=== PATIENT | male | born 1995 | race Caucasian/White ===

== ENCOUNTER → 2017-02-25 | Outpatient (CLI) | payer OTHER ==
--- NOTE | 2017-02-26 12:43 | MR ---
EXAMINATION TYPE: MR tib fib LT wo con DATE OF EXAM: 02/25/2017 1:33 PM COMPARISON: NONE HISTORY: 21-year-old male Left leg pain TECHNIQUE: Multiplanar, multisequence images of the left leg from above the knee to the distal third tibia/fibula were obtained without IV contrast. FINDINGS: No osseous edema or bone marrow replacement is identified. The knee articulation is grossly intact. There is mild joint effusion. There is mild vague edema asymmetric from the other side spanning approximately 7 cm craniocaudal and 3 cm wide along the mid calf centered within the lateral aspect of the medial head gastrocnemius. No abnormal fluid collection. Or discrete tear is seen. There is normal muscle bulk. No other soft ti ssue of the malleus seen. IMPRESSION: 1. Focal mild edema along the lateral aspect of the medial gastrocnemius located at the mid calf leve l. Correlate for a muscle strain or low-grade tennis leg injury without tear. 2. Otherwise, no specific abnormality seen. Imaging performed from above the knee to the distal third calf.
--- NOTE | 2017-02-27 22:04 | MR ---
EXAMINATION TYPE: MR ankle LT wo con DATE OF EXAM: 02/25/2017 1:33 PM COMPARISON: NONE HISTORY: 21-year-old male with left leg pain TECHNIQUE: Multiplanar, multisequence images of the left ankle were obtained without IV contrast. FINDINGS: There is a small tibiotalar joint effusion. A bilocular 1.2 x 0.8 cm ganglion cyst is noted posterior ly overlying the PTFL. Evaluation of the osseous structures shows no suspicious bone marrow replacement or focal bone marrow edema. Preserved fatty signal within the sinus tarsi. The tarsal tunnel is clear. The Achilles tendon and the origin of the plantar fascia are intact. The syndesmosis is intact. The anterior extensor tendons are satisfactory. Mild tenosynovial fluid seen along the posterior tibial tendon. Medial flexor tendons are otherwise s atisfactory. The deltoid and spring ligament complex are intact. The peroneal tendons and lateral ligamentous complex appear intact No significant soft tissue abnormality is seen. IMPRESSION: 1. Mild fluid seen along the posterior tibial tendon sheath probably physiologic. Correlate to exclud e mild tenosynovitis. 2. Bilocular 1.2 cm ganglion cyst posteriorly overlying the PTFL. 3. Otherwise, no specific abnormality seen.
== END | disposition home or self-care (01) ==
LOC: RADMRIMAIN 11:17
PROVIDERS: ATTEND Nurse Practitioner Family
DX: M67.472 Ganglion, left ankle and foot (principal); R60.0 Localized edema; M79.605 Pain in left leg

== ENCOUNTER 2017-05-18 15:19 | Emergency (ER) | payer OTHER ==
[2017-05-18] MEDS ORDERED: DIPH,PERTUS(ACELL)TETVAC-LF 0.5 ML VIAL IM ONE (15:23)
[2017-05-18] MEDS ORDERED: SODIUM CHLORIDE 0.9% 500 ML IV STA (15:23)
--- NOTE | 2017-05-18 15:42 | XR ---
EXAMINATION TYPE: XR chest 1V portable DATE OF EXAM: 05/18/2017 COMPARISON: NONE HISTORY: Pain TECHNIQUE: Single frontal view of the chest is obtained. FINDINGS: There is no focal air space opacity, pleural effusion, or pneumothorax seen. The cardiac silhouette size is within normal limits. The osseous structures are intact. IMPRESSION: No acute process.
[2017-05-18 15:47] LABS: Glucose,Whole Blood 116 mg/dL (75-99)
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
[2017-05-18 15:48] LABS: Basophils % (A) 0 %; CH 32.4; CHCM 36.3; Eosinophils # (A) 0.1 k/uL (0-0.7); Eosinophils % (A) 1 %; HCT 49.1 % (39.0-53.0); HDW 2.68; Luc # (Auto) 0.09; Luc % (Auto) 1; Lymphocytes # (A) 1.6 k/uL (1.0-4.8); Lymphocytes % (A) 21 %; MCH 31.1 pg (25.0-35.0); MCHC 34.6 g/dL (31.0-37.0); MCV 89.8 fL (80.0-100.0); Mean Platelet Volume 7.8; Monocytes # (A) 0.4 k/uL (0-1.0); Monocytes % (A) 5 %; Neutrophils # (A) 5.6 k/uL (1.3-7.7); Neutrophils % (A) 72 %; RBC 5.47 m/uL (4.30-5.90); RDW 13.8 % (11.5-15.5); WBC 7.8 k/uL (3.8-10.6); WBC (Perox) 7.75
[2017-05-18 15:57] VITALS: RESP 18
[2017-05-18 16:00] LABS: ALT 75 U/L (21-72); AST 42 U/L (17-59); Alcohol <10 mg/dL; Alkaline Phosphatase 75 U/L (38-126); Anion Gap 15 mmol/L; Blood Urea Nitrogen 12 mg/dL (9-20); Calcium 10.5 mg/dL (8.4-10.2); Carbon Dioxide 22 mmol/L (22-30); Chloride 106 mmol/L (98-107); Glucose 116 mg/dL (74-99); INR 1.1 (<1.2); Non-African American GFR(MDRD) >60 (>60 ml/min/1.73 sqM); Partial Thromboplastin Time 23.9 sec (22.0-30.0); Potassium 4.4 mmol/L (3.5-5.1); Prothrombin Time 11.2 sec (9.0-12.0); Sodium 143 mmol/L (137-145); Total Bilirubin 0.6 mg/dL (0.2-1.3); Total Protein 8.2 g/dL (6.3-8.2)
[2017-05-18 16:10] LABS: Creatine Kinase 171 U/L (55-170)
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
[2017-05-18 16:23] LABS: Creatine Kinase MB 1.5 ng/mL (0.0-2.4); Troponin I <0.012 ng/mL (0.000-0.034)
[2017-05-18 16:36] LABS: Appearance,Urine Clear (Clear); Bacteria,Urine Rare /hpf; Bilirubin,Urine Negative (Negative); Glucose,Urine (UA) Negative (Negative); Ketones,Urine Negative (Negative); Leukocyte Esterase,Urine Negative (Negative); Mucus,Urine Occasional /hpf; Nitrite,Urine Negative (Negative); PH, Urine 5.5 (5.0-8.0); Particle Count 5914; Protein,Urine 1+ (Negative); RBC,Urine 1 /hpf (0-5); Specific Gravity,Urine 1.017 (1.001-1.035); UA Billing (MACRO vs. MICRO) MICRO; Urobilinogen,Urine <2.0 mg/dL (<2.0); WBC,Urine 2 /hpf (0-5)
[2017-05-18 16:40] LABS: Amylase <30 U/L (30-110)
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
[2017-05-18 18:00] VITALS: BP 142/64; PULSE 76; TEMP 97.5
== END 2017-05-18 17:42 | disposition home or self-care (01) ==
LOC: EC 15:19
DX: S40.011A Contusion of right shoulder, initial encounter (principal); R51 Headache; M54.6 Pain in thoracic spine; F17.200 Nicotine dependence, unspecified, uncomplicated; V89.2XXA Person injured in unspecified motor-vehicle accident, traffic, initial encounter; Y92.89 Other specified places as the place of occurrence of the external cause
CPT/HCPCS: 36415; 70450; 71010; 72125; 72170; 80053; 80306; 80320; 81001; 82150; 82550; 82553; 83605; 83690; 84484; 85025; 85610; 85730; 86850; 86900; 86901; 93005; 96360; 96361; 99284

== ENCOUNTER 2019-11-07 09:23 | Emergency (ER) | payer OTHER ==
[2019-11-07 10:08] VITALS: BP 132/89; RESP 16; TEMP 98.2
[2019-11-07] MEDS ORDERED: KETOROLAC 60 MG/2 ML VIAL IM STA (10:45)
[2019-11-07] MEDS ORDERED: ORPHENADRINE 30 MG/ML 2 ML VIAL IM STA (10:45)
[2019-11-07] MEDS ORDERED: HYDROcodone/APAP 5-325MG 1 EACH TAB PO STA (10:45)
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
[2019-11-07 12:07] VITALS: PULSE 88
== END 2019-11-07 12:06 | disposition home or self-care (01) ==
LOC: EC 09:23
DX: S39.012A Strain of muscle, fascia and tendon of lower back, initial encounter (principal); G89.29 Other chronic pain; F17.200 Nicotine dependence, unspecified, uncomplicated; X50.9XXA Other and unspecified overexertion or strenuous movements or postures, initial encounter
CPT/HCPCS: 72110; 99283; 96372 ×2; J2360; J1885

== ENCOUNTER 2022-09-07 14:15 | Emergency (ER) | payer OTHER ==
[2022-09-07 14:35] VITALS: TEMP 97.8
[2022-09-07] MEDS ORDERED: ORPHENADRINE 30 MG/ML 2 ML VIAL IM STA (16:11)
[2022-09-07] MEDS ORDERED: KETOROLAC 15 MG/ML 1 ML VIAL IM STA (16:11)
[2022-09-07] MEDS ORDERED: DEXAMETHASONE SOD PHOSPHATE 10 MG/ML 1 ML VIAL IM STA (16:11)
--- NOTE | 2022-09-07 16:32 | XR ---
EXAMINATION TYPE: XR lumbar spine 2 or 3V DATE OF EXAM: 09/07/2022 CLINICAL HISTORY: Low back pain TECHNIQUE: Frontal and lateral images of the lumbar spine are obtained. COMPARISON: Prior lumbar spine x-ray November 07, 2019 FINDINGS: There are 5 lumbar type vertebral bodies redemonstrated. The lumbar spine shows stable sa tisfactory alignment without evidence of acute fracture or dislocation. Vertebral body heights and di sk space heights remain within normal limits. The overlying soft tissue appears unremarkable. IMPRESSION: As above.
--- NOTE | 2022-09-07 16:33 | ED ---
General Adult HPI - General Chief complaint: Back Pain/Injury Stated complaint: Back Pain Time Seen by Provider: 09/07/22 15:51 Source: patient Mode of arrival: ambulatory Limitations: no limitations - History of Present Illness Initial comments: Patient is a 27-year-old male presenting with chief complaint of back pain. Pain is located in the lower back, radiates down the right leg. No loss of bowel or bladder control or saddle paresthesia. Patient has a very physical job, states that he is often lifting heavy items and frequently alternates betw een bending over and standing back up. Pain was aggravated after using a jackhammer yesterday. Patient has history of chronic back pain. No abdominal pain, fever, chills, nausea, vomiting, diarrhea, hematochezia, melena, dysuria, hematuria. - Related Data Home Medications Medication Instructions Recorded Confirmed Ibuprofen [Motrin] 800 mg PO TID PRN 05/18/17 05/18/17 Previous Rx's Medication Instructions Recorded Ibuprofen [Motrin] 600 mg PO Q8HR PRN #24 tab 05/18/17 predniSONE 50 mg PO DAILY #5 tab 11/07/19 Cyclobenzaprine [Flexeril] 10 mg PO HS PRN #10 tab 09/07/22 methylPREDNISolone Dose Pack 4 mg PO DIRECTED #1 packet 09/07/22 [Medrol Dose Pack] Allergies Allergy/AdvReac Type Severity Reaction Status Date / Time No Known Allergies Allergy Verified 11/07/19 10:08 Review of Systems ROS Statement: Those systems with pertinent positive or pertinent negative responses have been documented in the HPI. ROS Other: All systems not noted in ROS Statement are negative. Past Medical History Additional Past Medical History / Comment(s): CHRONIC BACK PAIN History of Any Multi-Drug Resistant Organisms: None Reported Additional Past Surgical History / Comment(s): l left leg injury and surg Past Psychological History: No Psychological Hx Reported Past Alcohol Use History: Rare Past Drug Use History: Marijuana General Exam Limitations: no limitations General appearance: alert, in no apparent distress Head exam: Present: atraumatic, normocephalic, normal inspection Eye exam: Present: normal appearance Neck exam: Present: normal inspection Respiratory exam: Present: normal lung sounds bilaterally. Absent: respiratory distress, wheezes, rales, rhonchi, stridor Cardiovascular Exam: Present: regular rate, normal rhythm, normal heart sounds. Absent: systolic murmur, diastolic murmur, rubs, gallop, clicks Back exam: Present: normal inspection, paraspinal tenderness Neurological exam: Present: alert, oriented X3, CN II-XII intact Psychiatric exam: Present: normal affect, normal mood Skin exam: Present: warm, dry, intact, normal color. Absent: rash Course Vital Signs 09/07/22 09/07/22 14:32 18:24 Temperature 97.8 F 97.8 F Pulse Rate 70 88 Respiratory 20 18 Rate Blood Pressure 152/81 152/78 O2 Sat by Pulse 97 98 Oximetry Medical Decision Making - Medical Decision Making Patient is a 27-year-old male with history of chronic back pain presenting with chief complaint of lower back pain. No loss of bowel or bladder control or saddle paresthesia. Pain started yesterday after work, patient admits to a very physical job with a lot of heavy lifting and repetitive motions. On examination normal observation, there is paraspinal muscle tenderness. Per my interpretation x-ray shows no acute fracture or malalignment. Patient reports improvement after pain medication. Patient will be sent home with a work note and prescription for muscle relaxers at home. Do not take before driving or operating heavy machinery as this may cause drowsiness. Follow-up with PCP. Report back to ER with any new or worsening symptoms. Discussed return parameters and answered all questions. Patient conveyed verbal understanding and agreed to the plan. I discussed this case in detail with my attending Dr. Goodman Disposition Clinical Impression: Mechanical back pain, Strain of lumbar region Disposition: HOME SELF-CARE Condition: Good Instructions (If sedation given, give patient instructions): Low Back Strain (ED), Acute Low Back Pain (ED) Additional Instructions: Follow-up with PCP. Report back to ER with any new or worsening symptoms. Take medication as prescribed. Do not take cyclobenzaprine before driving or operating heavy machinery as may cause drowsiness. Prescriptions: Cyclobenzaprine [Flexeril] 10 mg PO HS PRN #10 tab PRN Reason: Spasms methylPREDNISolone Dose Pack [Medrol Dose Pack] 4 mg PO DIRECTED #1 packet Is patient prescribed a controlled substance at d/c from ED?: No Referrals: Bryant Silverman MD [Primary Care Provider] - 1-2 days Joe Egan DO [Doctor of Osteopathic Medicine] - 1-2 days Time of Disposition: 18:15
[2022-09-07 18:25] VITALS: BP 152/78; PULSE 88; RESP 18
== END 2022-09-07 18:15 | disposition home or self-care (01) ==
LOC: EC 14:15
DX: S39.012A Strain of muscle, fascia and tendon of lower back, initial encounter (principal); F12.90 Cannabis use, unspecified, uncomplicated; X58.XXXA Exposure to other specified factors, initial encounter
CPT/HCPCS: 72100; 99283; 96372 ×3; J1100; J2360; J1885

== ENCOUNTER 2022-12-27 23:50 | Emergency (ER) | payer OTHER ==
[2022-12-28 00:01] VITALS: BP 135/92; PULSE 67; RESP 18; TEMP 97.9
== END 2022-12-28 00:35 | disposition home or self-care (01) ==
LOC: EC 23:50
DX: Z02.83 Encounter for blood-alcohol and blood-drug test (principal)
CPT/HCPCS: 99499

== ENCOUNTER 2025-02-12 11:49 | Emergency (ER) | payer OTHER ==
[2025-02-12 12:11] VITALS: RESP 16
--- NOTE | 2025-02-12 12:11 | ED ---
General Adult HPI - General Stated complaint: anxiety Time Seen by Provider: 02/12/25 11:59 Source: patient, RN notes reviewed Mode of arrival: ambulatory Limitations: no limitations - History of Present Illness Initial comments: 29-year-old male presents emergency department with chief complaint of anxiety, passing out episode. Patient states he was at home states that the kids were upsetting he was having arguments with his significant other states that he been up all night very tired when he became very dizzy lightheaded and passed out. Patient states he has right hand pain from recent injury in which he punched a tree. Denies being depressed or suicidal. Does have a history of anxiety. - Related Data Home Medications Medication Instructions Recorded Confirmed Ibuprofen [Motrin] 800 mg PO TID PRN 05/18/17 05/18/17 Previous Rx's Medication Instructions Recorded Ibuprofen [Motrin] 600 mg PO Q8HR PRN #24 tab 05/18/17 predniSONE 50 mg PO DAILY #5 tab 11/07/19 Cyclobenzaprine [Flexeril] 10 mg PO HS PRN #10 tab 09/07/22 methylPREDNISolone Dose Pack 4 mg PO DIRECTED #1 packet 09/07/22 [Medrol Dose Pack] Allergies Allergy/AdvReac Type Severity Reaction Status Date / Time No Known Allergies Allergy Verified 02/12/25 12:11 Review of Systems ROS Statement: Those systems with pertinent positive or pertinent negative responses have been documented in the HPI. ROS Other: All systems not noted in ROS Statement are negative. Past Medical History Additional Past Medical History / Comment(s): CHRONIC BACK PAIN History of Any Multi-Drug Resistant Organisms: None Reported Additional Past Surgical History / Comment(s): l left leg injury and surg Past Psychological History: PTSD Smoking Status: Current every day smoker Past Alcohol Use History: Rare Past Drug Use History: Marijuana General Exam Limitations: no limitations General appearance: alert, in no apparent distress, anxious Head exam: Present: atraumatic, normocephalic, normal inspection Eye exam: Present: normal appearance, PERRL, EOMI. Absent: scleral icterus, conjunctival injection, periorbital swelling ENT exam: Present: normal exam, normal oropharynx, mucous membranes moist Neck exam: Present: normal inspection, full ROM. Absent: tenderness, menin gismus, lymphadenopathy Respiratory exam: Present: normal lung sounds bilaterally. Absent: respiratory distress, wheezes, rales, rhonchi, stridor Cardiovascular Exam: Present: regular rate, normal rhythm, normal heart sounds. Absent: systolic murmur, diastolic murmur, rubs, gallop, clicks GI/Abdominal exam: Present: soft, normal bowel sounds. Absent: distended, tenderness, guarding, rebound, rigid Extremities exam: Present: other (Right hand abrasion, swelling, ecchymosis) Course Vital Signs 02/12/25 11:59 Temperature 98.4 F Pulse Rate 76 Respiratory 16 Rate Blood Pressure 136/90 O2 Sat by Pulse 97 Oximetry EKG Findings - EKG Comments: EKG Findings:: EKG performed at 12: 12 sinus bradycardia with a rate of 56 SD 158 QRS 102 QT/QTc 396/387 early repull noted - EKG Results: EKG: interpreted by [facility] Procedures - Orthopedic Splinting/Casting Injury #1 Side: right Upper Extremity Injury Location: short arm, hand Upper Extremity Immobilizer: volar splint, synthetic pre-padded splint Additional Comments: Patient neurovascular intact after procedure Medical Decision Making - Medical Decision Making Was pt. sent in by a medical professional or institution (, PA, ART PREPARATOR, urgent care, hospital, or correction...) When possible be specific @ -No Did you speak to anyone other than the patient for history (EMS, parent, family, police, friend...)? What history was obtained from this source @ -No Did you review nursing and triage notes (agree or disagree)? Why? @ -I reviewed and agree with nursing and triage notes Were old charts reviewed (outside hosp., previous admission, EMS record, old EKG, old radiological studies, urgent care reports/EKG's, correction records)? Report findings @ -No old charts were reviewed Differential Diagnosis (chest pain, altered mental status, abdominal pain women, abdominal pain men, vaginal bleeding, weakness, fever, dyspnea, syncope, headache, dizziness, GI bleed, back pain, seizure, CVA, palpatations, mental health, musculoskeletal)? @ -Anxiety, panic attack, differential Syncope: Valvular disease, hypertrophic cardiomyopathy, pulmonary embolism, tamponade, tachycardia, bradycardia, [place], hypovolemia, hemorrhage, dissection, anemia, intracranial hemorrhage, seizure, hypoglycemia, carbon monoxide poisoning, this is not meant to be an all-inclusive list. EKG interpreted by me (3pts min.). @ -As above X-rays interpreted by me (1pt min.). @ -X-ray right hand showing fourth metacarpal fracture old fifth metacarpal fracture CT interpreted by me (1pt min.). @ -None done U/S interpreted by me (1pt. min.). @ -None done What testing was considered but not performed or refused? (CT, X-rays, U/S, labs)? Why? @ -None What meds were considered but not given or refused? Why? @ -None Did you discuss the management of the patient with other professionals (pro fessionals i.e. , PA, ART PREPARATOR, lab, RT, psych nurse, clinical social work aide, savings counselor, teacher, combatant diver officer, case managers)? Give summary @ -No Was smoking cessation discussed for >3mins.? @ -No Was critical care preformed (if so, how long)? @ -No Were there social determinants of health that impacted care today? How? (Homelessness, low income, unemployed, alcoholism, drug addiction, transportation, low edu. Level, literacy, decrease access to med. care, assisted, rehab)? @ -No Was there de-escalation of care discussed even if they declined (Discuss DNR or withdrawal of care, Hospice)? DNR status @ -No What co-morbidities impacted this encounter? (DM, HTN, Smoking, COPD, CAD, Cancer, CVA, ARF, Chemo, Hep., AIDS, mental health diagnosis, sleep apnea, morbid obesity)? @ -None Was patient admitted / discharged? Hospital course, mention meds given and route, prescriptions, significant lab abnormalities, going to OR and other pertinent info. @ -Discharged patient had acute anxiety, panic attack. Patient feels at his normal baseline laboratory studies unremarkable EKG unremarkable patient has right hand fracture was splinted and will follow-up with orthopedics. Undiagnosed new problem with uncertain prognosis? @ -No Drug Therapy requiring intensive monitoring for toxicity (Heparin, Nitro, Insulin, Cardizem)? @ -No Were any procedures done? @ -Splinting Diagnosis/symptom? @ -Right fourth metacarpal fracture, panic attack Acute, or Chronic, or Acute on Chronic? @ -Acute Uncomplicated (without systemic symptoms) or Complicated (systemic symptoms)? @ -[Uncomplicated Side effects of treatment? @ -No Exacerbation, Progression, or Severe Exacerbation? @ -No Poses a threat to life or bodily function? How? (Chest pain, [place], [place], pneumonia, PE, COPD, DKA, ARF, appy, cholecystitis, CVA, Diverticulitis, Homicidal, Suicidal, threat to staff... and all critical care pts) @ -No - Lab Data Result diagrams: 02/12/25 12:21 02/12/25 12:21 Lab Results 02/12/25 02/12/25 Range/Units 12:21 12:21 WBC 11.53 H (4.50-10.00) 10*3/uL RBC 4.77 (4.40-5.60) 10*6/uL Hgb 15.0 (13.0-17.0) g/dL Hct 41.0 (39.6-50.0) % MCV 86.0 (80.0-97.0) fL MCH 31.4 (27.0-32.0) pg MCHC 36.6 (32.0-37.0) g/dL Plt Count 195 (140-440) 10*3/uL MPV 11.0 (9.5-12.2) fL Immature Gran % (Auto) 0.3 % Neutrophils % 79.4 % Lymphocytes % 14.3 % Monocytes % 5.0 % Eosinophils % 0.7 % Basophils % 0.3 % Immature Gran # 0.04 (0.00-0.04) 10*3/uL Neutrophils # 9.14 H (1.80-7.70) 10*3/uL Lymphocytes # 1.65 (0.90-5.00) 10*3/uL Monocytes # 0.58 (0.20-1.00) 10*3/uL Eosinophils # 0.08 (0.04-0.35) 10*3/uL Basophils # 0.04 (0.00-0.10) 10*3/uL Immature Plt Fraction 11.0 H (1.1-6.1) % Sodium 138 (137-145) mmol/L Potassium 4.3 (3.5-5.1) mmol/L Chloride 110 H (98-107) mmol/L Carbon Dioxide 22 (22-30) mmol/L Anion Gap 6 mmol/L BUN 16 (9-20) mg/dL Creatinine 0.69 (0.66-1.25) mg/dL Est GFR (CKD-EPI)AfAm >90 (>60 ml/min/1.73 sqM) Est GFR (CKD-EPI)NonAf >90 (>60 ml/min/1.73 sqM) Glucose 112 H (74-99) mg/dL Calcium 9.1 (8.4-10.2) mg/dL Total Bilirubin 0.4 (0.2-1.3) mg/dL AST 27 (17-59) U/L ALT 33 (4-49) U/L Alkaline Phosphatase 68 (38-126) U/L Total Protein 6.3 (6.3-8.2) g/dL Albumin 3.9 (3.5-5.0) g/dL Disposition Clinical Impression: Panic attack, Closed fracture of 4th metacarpal Disposition: HOME SELF-CARE Condition: Stable Instructions (If sedation given, give patient instructions): Hand Fracture (ED) Additional Instructions: Please return to the Emergency Department if symptoms worsen or any other concerns. Is patient prescribed a controlled substance at d/c from ED?: No Referrals: Bryant Silverman MD [Primary Care Provider] - 1-2 days Anders Acevedo MD [STAFF PHYSICIAN] - 1-2 days Time of Disposition: 14:15
[2025-02-12] MEDS: LORazepam 2 MG/ML INJ IV STA (12:27)
[2025-02-12] MEDS: SODIUM CHLORIDE 0.9% 1,000 ML IV STA (12:28)
[2025-02-12 12:33] LABS: Basophils # (A) 0.04 10*3/uL (0.00-0.10); Basophils % (A) 0.3 %; Eosinophils # (A) 0.08 10*3/uL (0.04-0.35); Eosinophils % (A) 0.7 %; Lymphocytes # (A) 1.65 10*3/uL (0.90-5.00); Lymphocytes % (A) 14.3 %; MCH 31.4 pg (27.0-32.0); MCHC 36.6 g/dL (32.0-37.0); Monocytes # (A) 0.58 10*3/uL (0.20-1.00); Neutrophils # (A) 9.14 10*3/uL (1.80-7.70); Neutrophils % (A) 79.4 %; RBC 4.77 10*6/uL (4.40-5.60); WBC 11.53 10*3/uL (4.50-10.00)
[2025-02-12 12:46] LABS: ALT 33 U/L (4-49); AST 27 U/L (17-59); African American GFR (CKD) >90 (>60 ml/min/1.73 sqM); Albumin 3.9 g/dL (3.5-5.0); Alkaline Phosphatase 68 U/L (38-126); Anion Gap 6 mmol/L; Blood Urea Nitrogen 16 mg/dL (9-20); Calcium 9.1 mg/dL (8.4-10.2); Carbon Dioxide 22 mmol/L (22-30); Chloride 110 mmol/L (98-107); Glucose 112 mg/dL (74-99); Non-African American GFR(CKD) >90 (>60 ml/min/1.73 sqM); Potassium 4.3 mmol/L (3.5-5.1); Sodium 138 mmol/L (137-145); Total Bilirubin 0.4 mg/dL (0.2-1.3); Total Protein 6.3 g/dL (6.3-8.2)
[2025-02-12 13:16] LABS: Platelet Count 195 10*3/uL (140-440)
--- NOTE | 2025-02-12 13:21 | XR ---
EXAMINATION TYPE: XR hand complete RT DATE OF EXAM: 02/12/2025 1:08 PM COMPARISON: None CLINICAL INDICATION: Male, 29 years old with history of pain; PHH, pain TECHNIQUE: 3 views FINDINGS: There is old healed fracture deformity fifth metacarpal mid shaft and metacarpal neck. There is a marcus ear density measuring 3 to 4 mm within the palmar soft tissues at the level of the proximal index fin valencia. Prominent dorsal soft tissue swelling. Bony irregularity along the dorsal aspect of the CMC join ts, probably impacted intra-articular fracture at the level of the fourth metacarpal base. IMPRESSION: 1. Dorsal soft tissue swelling. Mildly impacted intra-articular fracture at the fourth metacarpal bas e. 2. Old boxer's fracture fifth metacarpal. 3. A 3 to 4 mm fine linear density within the palmar soft tissues at the proximal index finger. Corre late to exclude any retained foreign body or external artifact. [facility], Workstation: [facility], 02/12/2025 1:19 PM
[2025-02-12 14:49] VITALS: BP 128/88; PULSE 77; TEMP 98.7
== END 2025-02-12 14:35 | disposition home or self-care (01) ==
LOC: EC 11:49
DX: S62.314A Displaced fracture of base of fourth metacarpal bone, right hand, initial encounter for closed fracture (principal); F41.0 Panic disorder [episodic paroxysmal anxiety]; R00.1 Bradycardia, unspecified; F17.200 Nicotine dependence, unspecified, uncomplicated; W22.09XA Striking against other stationary object, initial encounter
CPT/HCPCS: 36415; 93005; 80053; 85025; 73130; 99284; 29125; 96374; 96361; J2060